=== PATIENT | male | born 1975 | race African-American/Black ===

== ENCOUNTER 2016-09-14 12:59 | Emergency (ER) | payer SELFPAY ==
--- NOTE | 2016-09-14 13:58 | ED ---
General Adult HPI - General Chief complaint: Extremity Injury, Lower Stated complaint: shoulder & arm pain Time Seen by Provider: 09/14/16 13:45 Source: patient, RN notes reviewed Mode of arrival: ambulatory Limitations: no limitations - History of Present Illness Initial comments: This is a 41-year-old male presents with left shoulder pain 2 days. Patient states this pain started while he was working. 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 Patient denies any numbness/weakness/tingling or radicular pain. Patient denies any neck pain. Patient states that lifting the left upper extremity makes the pain worse. Resting makes the pain better. Patient denies any blunt trauma to the left shoulder or any fall. Patient denies any recent fever, chills, shortness breath, chest pain, abdominal pain, nausea/vomiting/ diarrhea, back pain, hematuria, headache, or visual changes, or any other complaints. - Related Data Home Medications Medication Instructions Recorded Confirmed Dicyclomine [Bentyl] 20 mg PO QID 11/19/15 11/19/15 Previous Rx's Medication Instructions Recorded Hydrocodone/Acetaminophen [[place] 1 each PO Q6HR PRN #20 tab 11/08/15 5-325] Ondansetron Odt [Zofran ODT] 4 mg PO Q8HR PRN #10 tab 11/08/15 Docusate [Colace] 100 mg PO BID #30 capsule 11/19/15 HYDROcodone/APAP 5-325MG [[place] 1 tab PO Q4HR PRN #30 tab 11/19/15 5-325] Allergies Allergy/AdvReac Type Severity Reaction Status Date / Time No Known Allergies Allergy Verified 09/14/16 13:40 Review of Systems ROS Statement: Those systems with pertinent positive or pertinent negative responses have been documented in the HPI. ROS Other: All systems not noted in ROS Statement are negative. Past Medical History Past Medical History: Osteoarthritis (OA) Additional Past Medical History / Comment(s): gallstones History of Any Multi-Drug Resistant Organisms: None Reported Past Surgical History: No Surgical Hx Reported Past Anesthesia/Blood Transfusion Reactions: No Reported Reaction Additional Past Anesthesia/Blood Transfusion Reaction / Comment(s): NO PRIOR ANESTHESIA HX Past Psychological History: No Psychological Hx Reported Smoking Status: Current every day smoker Past Alcohol Use History: Occasional Additional Past Alcohol Use History / Comment(s): SMOKES ABOUT 1/2 PPD FOR PAST 20 YRS Past Drug Use History: None Reported - Past Family History Sister(s) Family Medical History: Cancer General Exam - General Exam Comments Initial Comments: General: The patient is awake and alert, in no distress, and does not appear acutely ill. Neck: No cervical midline tenderness. The neck is supple, there is no tenderness or JVD. Cardiovascular: There is a regular rate and rhythm. No murmur, rub or gallop is appreciated. Respiratory: Lungs are clear to auscultation, respirations are non-labored, breath sounds are equal. No wheezes, stridor, rales, or rhonchi. Musculoskeletal: Patient has pain to the anterior portion of the left shoulder. No pain to the posterior aspect of the left shoulder. Patient has limited range of motion with flexion of the left upper extremity but is able to flex the left upper extremity to ~100. Positive empty can test. No pain with resisted supination with elbow held at 90 degrees. strength 5/5 and Sensation intact. Radial pulses 2+ bilaterally. Capillary refill is normal at less than 2 seconds. Neurological: A&O x 3. CN II-XII intact, There are no obvious motor or sensory deficits. Coordination appears grossly intact. Speech is normal. Skin: Skin is warm and dry and no rashes or lesions are noted. Psychiatric: Normal mood and affect. Limitations: no limitations Course Vital Signs 09/14/16 13:37 Temperature 100.1 F H Pulse Rate 66 Respiratory 18 Rate Blood Pressure 135/85 O2 Sat by Pulse 100 Oximetry Medical Decision Making - Medical Decision Making This is a 41-year-old male who presents with left shoulder pain 2 days. On physical exam Patient has pain to the anterior portion of the left shoulder. No pain to the posterior aspect of the left shoulder. Patient is limited range of motion with flexion of the left upper extremity but is able to flex the left upper extremity to 100. Positive empty can test, strength 5/5 and Sensation intact. Radial pulses 2+ bilaterally. Capillary refill is normal at less than 2 seconds. Discussed with patient that this could most likely be a rotator cuff problem or tendinitis from repetitive motion at work. An x-ray of the left shoulder was done and reviewed showing: #1 AC joint slightly offset correlate with point tenderness or before meals joint sprain. If there is point tenderness consider dedicated AC joint series with and without weights. Reported by Dr. Torrez. Discussed results with patient. I suspect that a AC joint abnormality is chronic in nature. Patient had no fall to the left shoulder. Patient does admit to past falls to the left shoulder but this is not the cause of his pain today. Discussed rest, ice or use heating pads to the shoulder. Discussed follow-up with orthopedics. Discussed return parameters.Discussed that patient should follow up with PCP in one to 2 days or return to the [facility] for any worsening symptoms or for any further concerns. Patient was receptive to this plan and patient will be discharged home. I discussed his case with attending physician Dr. Marinelli who agrees the plan as stated above. Patient is afebrile upon discharge Disposition Clinical Impression: Left shoulder pain Disposition: HOME SELF-CARE Condition: Good Instructions: Shoulder Pain (ED) Additional Instructions: Please rest, ice and/or use heat the left shoulder. Please use over-the- counter Tylenol and or Motrin as needed for any pain. Please follow-up with orthopedics for further evaluation. Please follow-up with family doctor in the next 2 days of symptoms have not improved. Please return to emergency room if the symptoms increase or worsen or for any other concerns. Referrals: None,Stated [Primary Care Provider] - 1-2 days Sanford Prescott MD [Medical Doctor] - 1-2 days Angelica Monteiro MD [STAFF PHYSICIAN] - 1-2 days Nestor Easton III, MD [STAFF PHYSICIAN] - 1-2 days Chelo Reid MD [REFERRING] - 1-2 days Time of Disposition: 14:31
--- NOTE | 2016-09-14 14:12 | XR ---
EXAMINATION TYPE: XR shoulder complete LT DATE OF EXAM: 09/14/2016 COMPARISON: None HISTORY: Pain The osseous structures are intact. There is no acute fracture or dislocation. AC joint is somewhat o ffset. Correlate with point tenderness. IMPRESSION: 1. AC joint slightly offset correlate with point tenderness for AC joint sprain. If there is point te nderness consider dedicated AC joint series with and without weights.
[2016-09-14 14:48] VITALS: BP 138/68; PULSE 68; RESP 20; TEMP 97.9
== END 2016-09-14 14:45 | disposition home or self-care (01) ==
LOC: EC 12:59
DX: M25.512 Pain in left shoulder (principal); F17.200 Nicotine dependence, unspecified, uncomplicated; X58.XXXA Exposure to other specified factors, initial encounter; Y99.0 Civilian activity done for income or pay
CPT/HCPCS: 99283

== ENCOUNTER 2019-10-01 13:54 | Emergency (ER) | payer OTHER ==
[2019-10-01 14:12] VITALS: RESP 18
[2019-10-01] MEDS ORDERED: KETOROLAC 30 MG/ML 1 ML VIAL IM STA (14:22)
--- NOTE | 2019-10-01 14:44 | ED ---
General Adult HPI - General Chief complaint: Back Pain/Injury Stated complaint: back pain Time Seen by Provider: 10/01/19 14:13 Source: patient, RN notes reviewed Mode of arrival: ambulatory Limitations: no limitations - History of Present Illness Initial comments: 44-year-old male presents to the emergency department for back pain. Patient states he has had back pain for about a week. States that the pain is fine when he is resting or sitting however worsens with walking. Patient states he walks 30 minutes to the store and this is when he notices the pain. States that it is on the bilateral sides of his spine but is not in the middle. States after walking several minutes she starts to get low back pain and has to sit. Denies any radiating pain. Denies any numbness or tingling of the lower extremities. Denies any weakness of the lower extremities. Denies fevers or chills. Denies any numbness in the saddle region.Patient has no other complaints at this time including shortness of breath, chest pain, abdominal pain, nausea or vomiting, headache, or visual changes. - Related Data Home Medications Medication Instructions Recorded Confirmed Dicyclomine [Bentyl] 20 mg PO QID 11/19/15 09/14/16 Previous Rx's Medication Instructions Recorded Hydrocodone/Acetaminophen [[place] 1 each PO Q6HR PRN #20 tab 11/08/15 5-325] Ondansetron Odt [Zofran ODT] 4 mg PO Q8HR PRN #10 tab 11/08/15 Docusate [Colace] 100 mg PO BID #30 capsule 11/19/15 HYDROcodone/APAP 5-325MG [[place] 1 tab PO Q4HR PRN #30 tab 11/19/15 5-325] Allergies Allergy/AdvReac Type Severity Reaction Status Date / Time No Known Allergies Allergy Verified 10/01/19 14:12 Review of Systems ROS Statement: Those systems with pertinent positive or pertinent negative responses have been documented in the HPI. ROS Other: All systems not noted in ROS Statement are negative. Past Medical History Past Medical History: Osteoarthritis (OA) Additional Past Medical History / Comment(s): gallstones History of Any Multi-Drug Resistant Organisms: None Reported Past Surgical History: No Surgical Hx Reported Additional Past Surgical History / Comment(s): lithotripsy Past Anesthesia/Blood Transfusion Reactions: No Reported Reaction Additional Past Anesthesia/Blood Transfusion Reaction / Comment(s): NO PRIOR ANESTHESIA HX Past Psychological History: No Psychological Hx Reported Smoking Status: Current every day smoker Past Alcohol Use History: Occasional Past Drug Use History: None Reported - Past Family History Sister(s) Family Medical History: Cancer General Exam Limitations: no limitations General appearance: alert, in no apparent distress Head exam: Present: atraumatic, normocephalic, normal inspection Eye exam: Present: normal appearance, PERRL, EOMI. Absent: scleral icterus, conjunctival injection, periorbital swelling ENT exam: Present: normal exam, mucous membranes moist Neck exam: Present: normal inspection, full ROM. Absent: tenderness, meningismus, lymphadenopathy Respiratory exam: Present: normal lung sounds bilaterally. Absent: respiratory distress, wheezes, rales, rhonchi, stridor Cardiovascular Exam: Present: regular rate, normal rhythm, normal heart sounds. Absent: systolic murmur, diastolic murmur, rubs, gallop, clicks GI/Abdominal exam: Present: soft, normal bowel sounds. Absent: distended, tenderness, guarding, rebound, rigid Extremities exam: Present: normal capillary refill (Capillary refill less than 2 seconds, DP pulse 2+ in the bilateral lower extremities.), other (strength 5/5 in BLE) Back exam: Absent: full ROM (Patient has about 60 flexion of the lumbar spine which elicits pain. Full extension.), vertebral tenderness Neurological exam: Present: alert, normal gait (ambulatory without assistance) Course Vital Signs 10/01/19 14:09 Temperature 98.1 F Pulse Rate 89 Respiratory 18 Rate Blood Pressure 154/99 O2 Sat by Pulse 99 Oximetry Medical Decision Making - Medical Decision Making Patient was seen and evaluated upon arrival. HPI and physical exam as documented. Patient is ambulatory. Neurovascular status is intact. Pain seems less go skeletal as it worsens when he bends over and on long walks. He denies any radiating pain to the abdomen. Denies any radiating pain down the legs. Denies numbness or tingling, weakness in the lower extremities. X-ray was obtained which shows degenerative disc disease and facet arthropathy. Patient was given Toradol, currently rating pain at a 2 out of 10. Sitting on the stretcher playing games on his phone resting comfortably. Patient will be given Tylenol 3 for home. He will follow-up with Dr. Galo. He will return for any worsening symptoms which were discussed in depth with him. I discussed this case with attending Dr. Stratton who agrees with this assessment and treatment plan. Disposition Clinical Impression: Mechanical back pain Disposition: HOME SELF-CARE Condition: Good Instructions (If sedation given, give patient instructions): Acute Low Back Pain (ED) Additional Instructions: Please take Motrin and Tylenol for pain. Follow-up with Dr. Galo and primary care in 1-2 days. Return to the emergency department if you have any worsening symptoms. Is patient prescribed a controlled substance at d/c from ED?: No Referrals: Chelo Reid MD [Primary Care Provider] - 1-2 days Tamika Galo DO [Doctor of Osteopathic Medicine] - 1-2 days Time of Disposition: 15:42
--- NOTE | 2019-10-01 15:12 | XR ---
Lumbar spine HISTORY: Back pain 3 views of lumbar spine Loss of disc height is present at L4-5, L3-4. L5 may be a transitional vertebral body. Lumbar vertebr al bodies show preserved height and bone mineralization, alignment. Sclerosis present in the posterio r, consistent with facet arthropathy. Surgical clips are present right upper quadrant. Only rudimenta ry rib suspected at T12. There is multilevel spondylosis. IMPRESSION: Degenerative disc disease and facet arthropathy. Correlate with plain film prior to any i ntervention.
[2019-10-01 16:31] VITALS: BP 150/90; PULSE 82; TEMP 98
== END 2019-10-01 16:20 | disposition home or self-care (01) ==
LOC: EC 13:54
DX: M54.9 Dorsalgia, unspecified (principal); M51.36 Other intervertebral disc degeneration, lumbar region; M47.816 Spondylosis without myelopathy or radiculopathy, lumbar region; F17.200 Nicotine dependence, unspecified, uncomplicated
CPT/HCPCS: 72100; 99283; 96372; J1885